=== PATIENT | male | born 1965 | race Caucasian/White ===

== ENCOUNTER 2020-03-24 08:56 | Outpatient (CLI) | payer OTHER, SELFPAY ==
--- NOTE | 2020-05-09 11:05 | WPDHOMESLEEP ---
Sleep Study - Home Unattended Date of Study: 03/24/20 Ordering Provider: Migel Tang DO Interpreting Physician: Marva Pereira MD Home Sleep Study Type: Apnea Link Air Height: 1.78 m Weight: 113.398 kg Body Mass Index: 35.9 Neck Circumference (inches): 17 [place]: 8 Reason for Sleep Study history of obstructive sleep apnea, gastric bypass with 120 lb weight loss, history of several titrations previously; excessive daytime sleepiness on CPAP with unknown pressures. 09/30/2017 HST: AHI is low 2.7 with snoring and desaturation. BMI 33.8. In-lab polysomnogram was recommended as the sleep efficiency is not know on a home sleep test. 03/12/2012 No FRANK; AHI 1; BMI 25.5. This was the first study after gastric bypass surgery. 12/28/2010 CPAP titration showed an optimal pressure of 6 cm BMI 42.2 03/01/2008 CPAP titration optimal pressure 10 cm; BMI 38.4 05/22/2007 CPAP titration optimal pressure 7 cm, BMI 38.4 07/30/2006 CPAP titration optimal pressure 8 cm; BMI 38.4 05/18/2005 CPAP titration with optimal pressure 12 cm; BMI 42.8 04/26/2005 Basic sleep study AHI 8.7 with myoclonus and snoring; BMI 42.8 Sleep History Bernard Brown is a 54-year-old man who has been on CPAP for over 15 years. He lost 120 lb after gastric bypass surgery, see dates of studies above. In the last year, he gained 40 pounds and his neck size increased 1 inch. He is using CPAP now, the pressure is not known. It may be 6 cm as that was yamilex last known pressure from 2010 before weight loss surgery. If he does not use it, he wakes up gasping for air and he has a headache in the morning. The next day, he does not feel well rested. His CPAP has never been adjusted since he has had the significant weight loss. 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 He has excessive daytime sleepiness. He can't sleep without the CPAP but his machine is having a motor problem. He frequently awakens from sleep feeling short of breath. He occasionally awakens from sleep with heartburn, belching or coughing. He frequently snores. He rarely snores loudly enough that others complain about it. He constantly has trouble sleep with a cold. He occasionally wakes up gasping for breath at night. He frequently has breathing problems at night observed by others. He rarely sweats excessively at night. He does not notice his heart pounding or beating irregularly at night. He occasionally falls asleep during the day, never involuntarily, never while driving, and never while exerting physical effort. He does not have loss of muscle tone with strong emotion. He occasionally has daytime difficulties due to excessive sleepiness, works as a social media senior associate. He occasionally feels paralyzed on waking or falling asleep. He occasionally has vivid dreamlike scenes upon awakening or falling asleep. He rarely is afraid he rarely has nightmares. He frequently remembers his dreams. He frequently has racing thoughts. He occasionally has feelings of sadness, depression, anxiety and muscular tension. He occasionally notices parts of his body jerking, occasionally kicks at night and occasionally has crawling and aching feelings in his legs at night. He occasionally has leg pain during the night. He rarely has morning jaw pain and rarely grinds his teeth during sleep. He occasionally has bothered by pain during the day, is awakened by pain at night, occasionally wakes up feeling stiff in the morning with sore achy muscles and pain in the neck and spine. He has headaches, nightmares, insomnia and takes and acids regularly. He take sedatives. Normal bedtime is 10:00 p.m. taking 1-2 hours to fall asleep. He typically wakes 2-3 times during the night. He often uses the bathroom at night. Sometimes he lies awake trying to return to sleep. He wakes in the morning at 5:00 a.m.. He estimates 6 hours of sleep at night. He does sleep in on Saturdays and Sundays until 9:00 a
[2020-05-09 15:11] VITALS: BMI 35.9
== END 2020-03-24 08:57 | disposition home or self-care (01) ==
LOC: ANHCSM 08:57
PROVIDERS: PCP Internal Medicine; Visit Provider Internal Medicine
DX: G47.33 Obstructive sleep apnea (adult) (pediatric) (principal)
CPT/HCPCS: 95806

== ENCOUNTER 2020-11-29 02:11 | Day surgery (SDC) | payer OTHER, SELFPAY ==
[2020-11-17 13:12] VITALS: BMI 32.2
[2020-11-29 06:15] VITALS: BP 142/88; PULSE 68; RESP 18; TEMP 35.8; O2SAT 100; BMI 32.1
[2020-11-29 06:39] LABS: Glucose Point of Care 119 mg/dl (65-105)
[2020-11-29] MEDS: LACTATED RINGERS 1,000 ML 150 ML IV CONT (06:40)
--- NOTE | 2020-11-29 07:10 | WPDANESEPPF ---
Anes - Initial Pre Proc Eval Procedure: Operation Date: 11/29/20 07:30 Proposed Procedures p Screening Colonoscopy - Dutch Kim MD Date/Time: 11/29/20 07:10 Surgeon: Dutch Kim MD Pre Op Diagnosis: neoplasm screening Patient Data Age: 55 Gender: M Height: 1.78 m Weight: 101.6 kg Last Vital Signs Temp 96.5 F L 11/29/20 06:15 Pulse 68 11/29/20 06:15 Resp 18 11/29/20 06:15 BP 142/88 H 11/29/20 06:15 Pulse Ox 100 11/29/20 06:15 Allergies Allergy/AdvReac Type Severity Reaction Status Date / Time azithromycin Allergy Severe Urticaria Verified 11/29/20 06:26 Penicillins Allergy Severe Rash Verified 11/29/20 06:26 Home Medications Medication Instructions Recorded Confirmed Type folic acid 400 mcg tablet 0.4 mg PO DAILY 07/01/19 11/29/20 History omeprazole 20 mg capsule,delayed 20 mg PO DAILY 07/01/19 11/29/20 History release fenofibrate 160 mg tablet 160 mg PO DAILY #90 tablet 01/25/20 11/29/20 Rx metformin 500 mg tablet 500 mg PO BID #180 tablet 10/14/20 11/29/20 Rx Laboratory Tests 11/29/20 06:32 POC Capillary Glucose 119 mg/dl H mg/dl (65-105) Patient hx anesthesia problems: none Family hx anesthesia problems: none PMFSH Past Medical History Medical History (Updated 07/12/20 @ 07:26 by Hawk Hoover APRN) Dyslipidemia Essential (primary) hypertension FRANK (obstructive sleep apnea) (~03/2020) Seasonal allergies Type 2 diabetes mellitus without complication, without long-term current use of insulin Surgical History Surgical History (Updated 05/09/20 @ 15:44 by Marva Pereira MD) History of knee surgery Jan 2019 Status post bariatric surgery Family History Family History Other Diabetes mellitus Family history of liver disease Social History Social History (Updated 07/12/20 @ 07:17 by Leesa Delgado MA) Smoking status: Light tobacco smoker Tobacco type: cigars Second hand tobacco smoke exposure: No Additional smoking assessment comments: cigar on occasion Alcohol intake: current Drinks per week: 3 Substance use: never Substance use type: does not use Living arrangements: with family Gender identity (if verbalized by the patient): Male Anes - Eval Final PreProcedure Day of Procedure 11/29/20 07:10 Patient weight: overweight Heart: regular rate and rhythm Lungs: clear to auscultation Airway: Mallampati scale class II Neurological: alert and oriented Last oral intake: >/= 8 hours ASA classification: III Emergent: no Anesthetic plan: proceed Anesthesia type and monitoring: general GIVS and standard monitoring Informed Consent: The patient's anesthetic plan and its attendant risks and benefits were discussed with the patient/family/POA. Questions were solicited and answers provided to the satisfaction of the patient/family/POA.
--- NOTE | 2020-11-29 07:18 | WPDGICN ---
Assessment and Plan Assessment and plan (1) Screening for colon cancer: Code(s): Z12.11 - Encounter for screening for malignant neoplasm of colon Status: Acute Assessment and Plan: Patient presents for screening colonoscopy. Appears to be at average risk for colon polyps. GI Consult Note Consult date/time: 11/29/20 07:18 HPI: Bernard rBown is a 55 year old male Presents for screening colonoscopy. Patient reports that his current weight appetite bowel movements are normal. denies any blood in his stools. His bowel habits are regular. Family history is noncontributory. Patient presents for screening colonoscopy. Review of Systems Review of Systems: All systems reviewed & are unremarkable except as noted in HPI and below PMFSH Past Medical History Medical History (Updated 07/12/20 @ 07:26 by Hawk Hoover APRN) Dyslipidemia Essential (primary) hypertension FRANK (obstructive sleep apnea) (~03/2020) Seasonal allergies Type 2 diabetes mellitus without complication, without long-term current use of insulin Surgical History Surgical History (Updated 05/09/20 @ 15:44 by Marva Pereira MD) History of knee surgery Jan 2019 Status post bariatric surgery Family History Family History Other Diabetes mellitus Family history of liver disease Social History Social History (Updated 07/12/20 @ 07:17 by Leesa Delgado MA) Smoking status: Light tobacco smoker Tobacco type: cigars Second hand tobacco smoke exposure: No Additional smoking assessment comments: cigar on occasion Alcohol intake: current Drinks per week: 3 Substance use: never Substance use type: does not use Living arrangements: with family Gender identity (if verbalized by the patient): Male Meds Home Medications and Allergies Home Medications Medication Instructions Recorded Confirmed Type folic acid 400 mcg tablet 0.4 mg PO DAILY 07/01/19 11/29/20 History omeprazole 20 mg capsule,delayed 20 mg PO DAILY 07/01/19 11/29/20 History release fenofibrate 160 mg tablet 160 mg PO DAILY #90 tablet 01/25/20 11/29/20 Rx metformin 500 mg tablet 500 mg PO BID #180 tablet 10/14/20 11/29/20 Rx Allergies Allergy/AdvReac Type Severity Reaction Status Date / Time azithromycin Allergy Severe Urticaria Verified 11/29/20 06:26 Penicillins Allergy Severe Rash Verified 11/29/20 06:26 Vital Signs Vital Signs - 24 hr 11/29/20 06:15 Temperature 96.5 F L Pulse Rate 68 Respiratory Rate 18 Blood Pressure 142/88 H Pulse Oximetry 100 Exam Narrative: Physical exam reveals patient be alert. Vital signs stable. HEENT exam is unremarkable. Patient is anicteric. Lungs are clear to auscultation and percussion. Heart is without murmur or extra sounds. Abdominal exam bowel sounds are present soft nontender with no organomegaly. Digital external rectal exam is normal.
[2020-11-29] MEDS: SIMETHICONE ORAL SUSPENSION 20 MG/0.3 ML 30 ML BOTTLE 0.6 ML IRRIGATION (07:40)
[2020-11-29 07:49] VITALS: BP 104/64; PULSE 65; RESP 20; O2SAT 100
[2020-11-29 07:59] VITALS: BP 127/43; PULSE 65; RESP 18; O2SAT 100
[2020-11-29 08:09] VITALS: BP 126/73; PULSE 64; RESP 18; O2SAT 100
== END 2020-11-29 08:15 | disposition home or self-care (01) ==
PROVIDERS: PCP Internal Medicine; Visit Provider Internal Medicine Gastroenterology
PROC: 0DJD8ZZ Inspection of Lower Intestinal Tract, Via Natural or Artificial Opening Endoscopic (ICD-10-PCS; CPT 45378; principal; 2020-11-29 07:30)
DX: Z12.11 Encounter for screening for malignant neoplasm of colon (principal); D17.5 Benign lipomatous neoplasm of intra-abdominal organs; K64.8 Other hemorrhoids; K57.30 Diverticulosis of large intestine without perforation or abscess without bleeding; I10 Essential (primary) hypertension; E78.5 Hyperlipidemia, unspecified; G47.33 Obstructive sleep apnea (adult) (pediatric); E11.9 Type 2 diabetes mellitus without complications; Z72.0 Tobacco use; Z79.84 Long term (current) use of oral hypoglycemic drugs; Z98.84 Bariatric surgery status
CPT/HCPCS: 45378; 82948; J2001; J2704; J7120

== ENCOUNTER 2020-12-25 20:51 | Emergency (ER) | payer OTHER, SELFPAY ==
--- NOTE | ~2020-12-25 | XR_ITS ---
EXAMINATION: XR femur LT min 2V INDICATION: Left femur pain TECHNIQUE: Two views of the left femur obtained on four radiographs. COMPARISON: None available FINDINGS: There is lateral soft tissue swelling of the leg Bone alignment is normal. There is no frac ture. Mild osteoarthritis is noted at the knee. IMPRESSION: 1. Lateral soft tissue swelling of the leg without acute osseous abnormality. Reviewed, dictated and finalized at location A.
--- NOTE | ~2020-12-25 | XR_ITS ---
EXAMINATION: XR hip LT 2V w AP pelvis INDICATION: Left hip pain TECHNIQUE: AP view the pelvis and two views of the left hip are obtained. COMPARISON 09/15/2009: None available FINDINGS: Bone alignment is normal. There is no fracture. There is lateral soft tissue swelling overl rossi the hip. IMPRESSION: 1. Lateral soft tissue swelling without acute osseous abnormality. Reviewed, dictated and finalized at location A.
[2020-12-25 20:57] VITALS: BP 155/78; PULSE 92; RESP 16; TEMP 37; O2SAT 100
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
[2020-12-25 22:04] LABS: Basophils Percent Auto 0.3 % (0.2-1.2); Eosinophils Absolute Auto 0.1 K/mm3 (0-0.3); Eosinophils Percent Auto 0.5 % (0-4.4); Hematocrit 34.4 % (42.0-52.0); Hemoglobin 10.8 g/dL (14.0-18.0); Immature Granulocyte Absolute 0.04 K/mm3 (0.00-0.031); Immature Granulocyte Percent A 0.4 % (0-0.5); Lymphocytes Percent Auto 15.6 % (18.3-44.2); Mean Corpuscular HGB Conc 31.4 g/dl (32-36); Mean Corpuscular Hemoglobin 26.4 pg (26-34); Mean Corpuscular Volume 84.1 fl (80-100); Mean Platelet Volume 9.7 fl (7.4-10.4); Monocytes Percent Auto 10.6 % (2.6-8.5); Neutrophils Percent Auto 72.6 % (45.5-73.1); Platelet Count Result 318 k/mm3 (150-375); Red Blood Count 4.09 M/mm3 (4.6-6.20); Red Cell Distribution Width 14.5 % (11.5-14.5); White Blood Count 9.6 K/mm3 (4.5-10.0)
[2020-12-25 22:15] LABS: INR 1.1; Prothrombin Time 14.4 Seconds (11.1-14.7)
[2020-12-25 22:53] VITALS: BP 133/77; PULSE 79; RESP 16; O2SAT 100
== END 2020-12-25 23:17 | disposition home or self-care (01) ==
PROVIDERS: Emergency Provider Emergency Medicine; PCP Internal Medicine
DX: S70.12XA Contusion of left thigh, initial encounter (principal); I10 Essential (primary) hypertension; E11.9 Type 2 diabetes mellitus without complications; E78.5 Hyperlipidemia, unspecified; G47.33 Obstructive sleep apnea (adult) (pediatric); Z72.0 Tobacco use; V28.4XXA Motorcycle driver injured in noncollision transport accident in traffic accident, initial encounter; Y92.410 Unspecified street and highway as the place of occurrence of the external cause
CPT/HCPCS: 36415; 73502; 73552; 85025; 85610; 99284

== ENCOUNTER 2021-01-10 11:33 | Outpatient (CLI) | payer OTHER, SELFPAY ==
[2021-01-10 11:53] LABS: Basophils Absolute Auto 0.1 K/mm3 (0.0-0.1); Basophils Percent Auto 0.9 % (0.2-1.2); Eosinophils Absolute Auto 0.1 K/mm3 (0-0.3); Eosinophils Percent Auto 1.4 % (0-4.4); Hematocrit 39.1 % (42.0-52.0); Immature Granulocyte Absolute 0.04 K/mm3 (0.00-0.031); Immature Granulocyte Percent A 0.6 % (0-0.5); Lymphocytes Absolute Auto 1.46 K/mm3 (0.9-3.2); Lymphocytes Percent Auto 21.2 % (18.3-44.2); Mean Corpuscular HGB Conc 30.7 g/dl (32-36); Mean Corpuscular Hemoglobin 27.6 pg (26-34); Mean Corpuscular Volume 90.1 fl (80-100); Mean Platelet Volume 9.3 fl (7.4-10.4); Monocytes Absolute Auto 0.6 K/mm3 (0.1-0.6); Monocytes Percent Auto 9.3 % (2.6-8.5); Neutrophils Absolute Auto 4.6 K/mm3 (1.3-6.7); Neutrophils Percent Auto 66.6 % (45.5-73.1); Platelet Count Result 390 k/mm3 (150-375); Red Blood Count 4.34 M/mm3 (4.6-6.20); Red Cell Distribution Width 15.4 % (11.5-14.5); White Blood Count 6.9 K/mm3 (4.5-10.0)
[2021-01-10 12:31] LABS: Iron 42 ug/dL (49-181)
[2021-01-10 12:40] LABS: Percent Iron Saturation 9 % (20-50)
[2021-01-10 13:38] LABS: Folic Acid > 20.0 ng/mL (2.76->20)
== END 2021-01-10 11:34 | disposition home or self-care (01) ==
PROVIDERS: PCP Internal Medicine; Visit Provider Surgery
DX: S70.02XD Contusion of left hip, subsequent encounter (principal); X58.XXXD Exposure to other specified factors, subsequent encounter
CPT/HCPCS: 36415; 82607; 82728; 82746; 83540; 83550; 85025

== ENCOUNTER 2023-10-10 10:06 | Outpatient (CLI) | payer OTHER, SELFPAY ==
--- NOTE | ~2023-10-10 | MR_ITS ---
MRI of the left shoulder Technique: Axial proton-density fat-sat images, coronal proton density fat-sat and T2 fat-sat images, and sagittal T1-weighted and T2 fat-sat images were acquired. Clinical History: Rotator cuff tear Findings: There is moderate to advanced AC joint degenerative change, bony productive change of the d istal clavicle in particular. No significant subacromial spur. Coracoclavicular, coracoacromial, and coracohumeral ligaments appear intact. There is moderate to advanced supraspinatus and infraspinatus tendinosis. There is probable low-grade articular surface partial thickness tearing at the distal supraspinatus tendon insertion. No definit e infraspinatus tendon tear seen. Subscapularis tendon is intact, with moderate to severe tendinosis. Tendon of the long head of the biceps is intact. No definite labral tear identified. Inferior glenohumeral ligament is intact. No significant effusion or degenerative change of the gleno humeral joint. No significant fluid distention of the subacromial/subdeltoid bursa. No muscle atrophy or edema. Impression: Rotator cuff tendinosis, as detailed above, with low-grade partial thickness articular surface tearin g of the distal supraspinatus tendon. AC joint degenerative change, as above. Reviewed, dictated and finalized at location . Impression: Rotator cuff tendinosis, as detailed above, with low-grade partial thickness ar ticular surface tearing of the distal supraspinatus tendon. AC joint degenerative change, as above.
== END 2023-10-10 10:07 ==
LOC: MICIMG 10:07
PROVIDERS: PCP Nurse Practitioner Family; Visit Provider Orthopaedic Surgery
DX: M75.32 Calcific tendinitis of left shoulder (principal); M19.012 Primary osteoarthritis, left shoulder
CPT/HCPCS: 73221